=== PATIENT | female | born 1965 | race American Indian/Alaskan Native ===

== ENCOUNTER 2017-01-26 18:13 | Emergency (ER) | payer OTHER ==
[2017-01-26] MEDS ORDERED: cefTRIAXone 1 GM, Lidocaine 1% 2.1 ML IM ONE ×2 (19:11)
--- NOTE | 2017-01-26 19:14 | EDM.PDOC ---
ED HPI ENT - General Chief Complaint: ENT Problem Stated Complaint: ENT PROB Time Seen by Provider: 01/26/17 19:11 Source of Information: Reports: Patient History Limitations: Reports: No limitations - History of Present Illness INITIAL COMMENTS - FREE TEXT/NARRATIVE: 3 days h/o problem not better wants shot. - Related Data Allergies/ADRs: Allergies Allergy/AdvReac Type Severity Reaction Status Date / Time Sulfa (Sulfonamide Allergy Lightheaded Verified 01/26/17 18:43 Antibiotics) ness Home Meds: Home Meds Levothyroxine Sodium [Synthroid] 0.112 mcg PO DAILY 04/29/14 [History] Lisinopril [Prinivil] 10 mg PO DAILY 04/29/14 [History] Propranolol HCl [Propranolol HCl] 60 mg PO DAILY 04/29/14 [History] Cholecalciferol (Vitamin D3) [Cholecalciferol] 1 gm PO DAILY 11/28/16 [History] Ibuprofen [Motrin] 600 mg PO Q6H 11/28/16 [History] Montelukast [Singulair] 10 mg PO DAILY 11/28/16 [History] Ranitidine HCl [Ranitidine] 150 mg PO BID 11/28/16 [History] amLODIPine Besylate [Amlodipine Besylate] 5 mg PO DAILY 11/28/16 [History] atorvaSTATin [Lipitor] 5 mg PO BEDTIME 11/28/16 [History] Past Medical History HEENT History: Reports: Impaired vision Cardiovascular History: Reports: High cholesterol, Hypertension Respiratory History: Reports: Asthma Endocrine/Metabolic History: Reports: Hypothyroidism - Past Surgical History GI Surgical History: Reports: Appendectomy, Cholecystectomy Social & Family History - Tobacco Use Years of Tobacco use: 20 - Alcohol Use Days Per Week of Alcohol Use: 0 - Recreational Drug Use Recreational Drug Use: No ED ROS ENT - Review of Systems Review Of Systems: ROS reveals no pertinent complaints other than HPI. ED EXAM, ENT - Physical Exam Exam: See Below Exam Limited By: No limitations General Appearance: alert, WD/WN, mild distress, other (tearful) Ears: normal external exam, normal canal, hearing grossly normal, TM dullness Mouth/Throat: Pharyngeal erythema, Tonsillar erythema, Tonsillar swelling Head: atraumatic Neck: non-tender, full range of motion, lymphadenopathy (L), lymphadenopathy (R) Respiratory/Chest: no respiratory distress, no accessory muscle use Cardiovascular: regular rate, rhythm GI/Abdominal: soft, non tender Neurological: alert, oriented, normal cognition, normal gait, no motor/sensory deficits Psychiatric: flat affect Skin: Warm, Dry Lymphatic: other (cervical) Course - Vital Signs Last Recorded V/S: Last Vital Signs Temp 36.6 C 01/26/17 18:34 Pulse 72 01/26/17 18:34 Resp 16 01/26/17 18:34 BP 135/75 01/26/17 18:34 Pulse Ox 97 01/26/17 18:34 - Orders/Labs/Meds Orders: Active Orders 24 hr Category Date Time Status CULTURE STREP A CONFIRMATION [] Stat Lab 01/26/17 18:30 Results STREP SCRN A RAPID W CULT CONF [] Stat Lab 01/26/17 18:30 Results cefTRIAXone 1 GM,Lidocaine 1% 2.1 ML Med 01/26/17 19:11 Ordered cefTRIAXone [Rocephin] 1 gm Lidocaine 1% [Xylocaine-MPF 1%] 2.1 ml IM ONETIME - Re-Assessments/Exams Free Text/Narrative Re-Assessment/Exam: 01/26/17 19:13 results discussed with Pt. Departure - Departure Time of Disposition: 19:13 Disposition: Home, Self-Care 01 Condition: good Clinical Impression: Tonsillitis Instructions: Tonsillitis, [id number] Forms: ED Department Discharge Additional Instructions: 1) avoid solid foods and scratchy foods 2) have popsicle, jello, juice, soft foods 3) follow up at clinic or recheck as needed rx given: z-javier - My Orders Last 24 Hours: My Active Orders 01/26/17 19:11 cefTRIAXone 1 GM,Lidocaine 1% 2.1 ML cefTRIAXone [Rocephin] 1 gm Lidocaine 1% [ Xylocaine-MPF 1%] 2.1 ml IM ONETIME - Assessment/Plan Last 24 Hours: My Active Orders 01/26/17 19:11 cefTRIAXone 1 GM,Lidocaine 1% 2.1 ML cefTRIAXone [Rocephin] 1 gm Lidocaine 1% [ Xylocaine-MPF 1%] 2.1 ml IM ONETIME
[2017-01-26 19:19] VITALS: BP 119/89
== END 2017-01-26 19:40 | disposition home or self-care (01) ==
LOC: DL.ED 18:13
DX: J03.90 Acute tonsillitis, unspecified (principal); J45.909 Unspecified asthma, uncomplicated; I10 Essential (primary) hypertension; E78.00 Pure hypercholesterolemia, unspecified; E03.9 Hypothyroidism, unspecified; F17.200 Nicotine dependence, unspecified, uncomplicated; Z88.2 Allergy status to sulfonamides; Z79.899 Other long term (current) drug therapy
CPT/HCPCS: 87081; 87430; 87804; 96372; 99283; J0696

== ENCOUNTER 2018-11-19 17:03 | Emergency (ER) | payer BC, OTHER ==
--- NOTE | 2018-11-19 18:43 | EDM.PDOC ---
Scribed by Michaela Clancy 11/19/18 [id number] for Saniya Velásquez NP <Saniya Velásquez - Last Filed: 11/19/18 18:43> ED HPI GENERAL MEDICAL PROBLEM - General Chief Complaint: Respiratory Problem Stated Complaint: ? PNEUMONIA [id number] Time Seen by Provider: 11/19/18 18:08 Source of Information: Reports: Patient, RN, RN Notes Reviewed History Limitations: Reports: No Limitations - History of Present Illness INITIAL COMMENTS - FREE TEXT/NARRATIVE: Pt to Er with c/o chest heaviness, SOB, sinus congestion since Thursday. She admits to chills, cough, and nausea. She states she has been using several OTC meds such as decongestants, Mucinex, as well as nebulizers. Onset: Gradual Onset Date: 11/15/18 Treatments MOLDING ASSOCIATE: Reports: Breathing Treatments, Home Treatments, NSAIDS, Other Medication(s) Other Treatments MOLDING ASSOCIATE: OTC cold remedies Chest Pain Score (Numeric/FACES): 4 - Related Data Allergies Allergy/AdvReac Type Severity Reaction Status Date / Time Sulfa (Sulfonamide Allergy Lightheaded Verified 11/19/18 18:00 Antibiotics) ness Home Meds: Home Meds Levothyroxine Sodium [Synthroid] 125 mcg PO DAILY 04/29/14 [History] Lisinopril [Prinivil] 10 mg PO DAILY 04/29/14 [History] Cholecalciferol (Vitamin D3) [Cholecalciferol] 1 gm PO BEDTIME 11/28/16 [History ] Ibuprofen [Motrin] 600 mg PO Q6H PRN 11/28/16 [History] Montelukast [Singulair] 10 mg PO BEDTIME 11/28/16 [History] Ranitidine HCl [Ranitidine] 150 mg PO BID PRN 11/28/16 [History] Albuterol [Proventil Neb Soln] 2.5 mg INH QID 11/19/18 [History] Albuterol/Ipratropium [DuoNeb 3.0-0.5 MG/3 ML] 3 ml INH QID 11/19/18 [History] Cetirizine [ZyrTEC] 10 mg PO DAILY 11/19/18 [History] Past Medical History HEENT History: Reports: Impaired Vision Cardiovascular History: Reports: High Cholesterol, Hypertension Respiratory History: Reports: Asthma Endocrine/Metabolic History: Reports: Hypothyroidism - Past Surgical History GI Surgical History: Reports: Appendectomy, Cholecystectomy Social & Family History - Tobacco Use Smoking Status *Q: Current Every Day Smoker Years of Tobacco use: 37 Packs/Tins Daily: 1 Used Tobacco, but Quit: No Second Hand Smoke Exposure: No - Caffeine Use Caffeine Use: Reports: Coffee - Alcohol Use Days Per Week of Alcohol Use: 9 Number of Drinks Per Day: 2 Total Drinks Per Week: 18 - Recreational Drug Use Recreational Drug Use: No ED ROS GENERAL - Review of Systems Review Of Systems: ROS reveals no pertinent complaints other than HPI. ED EXAM, GENERAL - Physical Exam Exam: See Below Exam Limited By: No Limitations General Appearance: Alert, WD/WN, Mild Distress Eye Exam: Bilateral Eye: EOMI, Normal Inspection Ears: Normal External Exam, Hearing Grossly Normal Nose: Normal Inspection Throat/Mouth: Normal Inspection, Normal Voice, No Airway Compromise Head: Atraumatic, Normocephalic Neck: Normal Inspection, Full Range of Motion, Lymphadenopathy (L), Lymphadenopathy (R), Tender Lateral Respiratory/Chest: No Respiratory Distress, No Accessory Muscle Use, Crackles ( LLL), Wheezing (RUL) Cardiovascular: Normal Peripheral Pulses, Regular Rate, Rhythm, No Edema, No Gallop, No JVD, No Murmur, No Rub Peripheral Pulses: 2+: Radial (L), Radial (R) GI/Abdominal: Normal Bowel Sounds, Soft, Non-Tender (Female) Exam: Deferred Rectal (Female) Exam: Deferred Back Exam: Normal Inspection, Full Range of Motion Extremities: Normal Inspection, Normal Range of Motion, Non-Tender, No Pedal Edema, Normal Capillary Refill Neurological: Alert, Oriented, CN II-XII Intact, Normal Cognition, Normal Gait, Normal Reflexes, No Motor/Sensory Deficits Psychiatric: Normal Affect, Normal Mood Skin Exam: Warm, Dry, Intact, Normal Color, No Rash Lymphatic: Adenopathy (Bilateral submental/AC +2) Course - Vital Signs Last Recorded V/S: Last Vital Signs Temp 36.9 C 11/19/18 19:26 Pulse 65 11/19/18 19:26 Resp 18 11/19/18 19:26 BP 135/75 11/19/18 19:26 Pulse Ox 96 11/19/18 19:26 - Orders/Labs/Meds Orders: Active Orders 24 hr Category Date Time Status RT Aerosol Therapy [RC] ASDIRECTED Care 11/19/18 20:36 Active Benzonatate [Tessalon Perles] Med 11/19/18 21:33 Once 100 mg PO ONETIME ONE LORazepam [Ativan] Med 11/19/18 21:33 Once 1 mg PO ONETIME ONE Labs: Laboratory Tests 11/19/18 11/19/18 Range/Units 19:00 19:00 WBC 10.4 H (5.0-10.0) 10^3/uL RBC 4.40 (4.2-5.4) 10^6/uL Hgb 13.8 (12.0-16.0) g/dL Hct 40.9 (37.0-47.0) % MCV 93.0 D (80-100) fL MCH 31.4 (27.0-34.0) pg MCHC 33.7 (33.0-35.0) g/dL Plt Count 243 D (150-450) 10^3/uL Neut % (Auto) 67.3 (42.2-75.2) % Lymph % (Auto) 25.3 (20.5-50.1) % [place] % (Auto) 5.0 (2-8) % Eos % (Auto) 2.2 (1.0-3.0) % Baso % (Auto) 0.2 (0.0-1.0) % Sodium 134 L (135-145) mmol/L Potassium 3.8 (3.6-5.0) mmol/L Chloride 99 L (101-111) mmol/L Carbon Dioxide 24.0 (21.0-31.0) mmol/L Anion Gap 14.8 BUN 11 (7-18) mg/dL Creatinine 0.6 (0.6-1.3) mg/dL Est Cr Clr Drug Dosing 92.72 mL/min Estimated GFR (MDRD) > 60 BUN/Creatinine Ratio 18.33 Glucose 112 H (74-105) mg/dL Calcium 9.7 (8.4-10.2) mg/dl Total Bilirubin 0.7 (0.2-1.0) mg/dL AST 57 H (10-42) IU/L ALT 51 (10-60) IU/L Alkaline Phosphatase 86 (42-121) IU/L Total Protein 7.1 (6.7-8.2) g/dl Albumin 3.8 (3.2-5.5) g/dl Globulin 3.3 Albumin/Globulin Ratio 1.15 Meds: Medications Discontinued Medications Generic Name Dose Route Start Last Admin Trade Name Rogelioq PRN Reason Stop Dose Admin Albuterol/Ipratropium 3 ml 11/19/18 20:35 11/19/18 20:56 Duoneb 3.0-0.5 Mg/3 Ml NEB 11/19/18 20:36 3 ml ONETIME ONE Administration Ketorolac Tromethamine 30 mg 11/19/18 20:35 11/19/18 20:55 Toradol IM 11/19/18 20:36 30 mg ONETIME ONE Administration Methylprednisolone Sodium Succinate 125 mg 11/19/18 20:35 11/19/18 20:55 Solu-Medrol IM 11/19/18 20:36 125 mg ONETIME ONE Administration Departure - Departure Disposition: Home, Self-Care 01 Clinical Impression: Acute bronchitis with bronchospasm Sinusitis Qualifiers: Sinusitis location: frontal Chronicity: subacute Qualified Code(s): J01.10 - Acute frontal sinusitis, unspecified - Discharge Information Instructions: Acute Bronchitis, Adult Forms: ED Department Discharge Additional Instructions: 1) don't sleep flat at night 2) drink lots of liquids 3) continue with neb treatments and decongestants 4) recheck as needed rx given; medrol dospak tessalon pearles 100mg tid prn x 12 - My Orders Last 24 Hours: My Active Orders 11/19/18 20:36 RT Aerosol Therapy [RC] ASDIRECTED 11/19/18 21:33 Benzonatate [Tessalon Perles] 100 mg PO ONETIME ONE LORazepam [Ativan] 1 mg PO ONETIME ONE - Assessment/Plan Last 24 Hours: My Active Orders 11/19/18 20:36 RT Aerosol Therapy [RC] ASDIRECTED 11/19/18 21:33 Benzonatate [Tessalon Perles] 100 mg PO ONETIME ONE LORazepam [Ativan] 1 mg PO ONETIME ONE <Ken Briseno - Last Filed: 11/19/18 21:37> Course - Re-Assessments/Exams Free Text/Narrative Re-Assessment/Exam: 11/19/18 21:33 re-exam; s/p duoneb + solumed = much better Departure - Departure Time of Disposition: 21:34 Condition: Good I have read and agree with the documentation that has been completed regarding this visit. By signing this record, I attest that the documentation was completed in my physical presence and is an accurate record of the encounter.
[2018-11-19 19:26] VITALS: BP 135/75
[2018-11-19 19:26] LABS: ANION GAP 14.8; CHLORIDE,CL 99 mmol/L (101-111); SODIUM,NA 134 mmol/L (135-145)
[2018-11-19] MEDS ORDERED: methylPREDNISolone Sodium Succinate 125 MG/2 ML SDV IM ONE (20:35)
[2018-11-19] MEDS ORDERED: Ketorolac 30 MG/ML SDV IM ONE (20:35)
[2018-11-19] MEDS ORDERED: Albuterol/Ipratropium 3.0-0.5 MG/3 ML Neb Soln NEB ONE (20:35)
[2018-11-19] MEDS ORDERED: LORazepam 1 MG Tab PO ONE (21:33)
[2018-11-19] MEDS ORDERED: Benzonatate 100 MG Cap PO ONE (21:33)
== END 2018-11-19 21:45 | disposition home or self-care (01) ==
LOC: DL.ED 17:03
DX: J20.9 Acute bronchitis, unspecified (principal); J01.10 Acute frontal sinusitis, unspecified; E78.00 Pure hypercholesterolemia, unspecified; I10 Essential (primary) hypertension; F17.210 Nicotine dependence, cigarettes, uncomplicated; Z88.0 Allergy status to penicillin; Z79.899 Other long term (current) drug therapy
CPT/HCPCS: 36415; 71046; 80053; 85025; 87804; 96372; 99284; A9270; J1885; J2930; J7620-GY

== ENCOUNTER 2019-01-07 05:21 | Day surgery (SDC) | payer BC, OTHER ==
[2019-01-07] MEDS ORDERED: fentaNYL 100 MCG/2 ML SDV IV ONE ×4 (05:22→06:37)
[2019-01-07] MEDS ORDERED: Midazolam 1 MG/ML 2 ML SDV IV ONE ×7 (05:22→06:36)
[2019-01-07] MEDS ORDERED: Midazolam 1 MG/ML 2 ML SDV ONE (05:45)
[2019-01-07] MEDS ORDERED: fentaNYL 100 MCG/2 ML SDV ONE (05:45)
[2019-01-07] MEDS ORDERED: Dextrose 5%-0.45% NaCl 1,000 ML IV SCH (06:00)
--- NOTE | 2019-01-07 07:15 | OR ---
DATE: 01/07/2019 PROCEDURE: Total colonoscopy. INSTRUMENT USED: [id number]-[id number] Olympus video colonoscope. PREMEDICATIONS: Fentanyl 125 mcg intravenous, Versed 4 mg intravenous. Nasal O2 cannula. The procedure was done under pulse oximetry, BP recording, and trouble dispatcher. INDICATION: The patient with Hemoccult positive stools. Colonoscopic examination is done for detection of any polypoid lesions and removal, endoscopic hemostasis therapy if needed. DESCRIPTION OF PROCEDURE: Initial rectal exam was unremarkable. Rigid anoscopy showed small internal hemorrhoids without bleeding from them. The colonoscope was passed with ease to the ileocecal area. Photographs were taken of the normal cecum, identified by appendiceal orifice and double-bulged ileocecal folds. No bleeding was noted from any of the visualized areas at the commencement of the examination. The bowel preparation was the adequate, [place] scale 3. No stricture. No vascular ectasia. No large isolated ulcerations seen. No evidence of diffuse inflammatory bowel disease in the form of friability, contact bleeding, or ulcerations. No polyp or tumor mass identified. Probing the proximal sides of folds and flexures, using adequate distention and clearing up the stool material, withdrawal of the scope was made, cecum to rectum time over 6 minutes. No bleeding was noted from any of the visualized areas at the completion of examination. IMPRESSION: Internal hemorrhoids. The patient tolerated the procedure well. [facility] /[id number] MTDD
[2019-01-07 12:52] VITALS: BP 127/86
--- NOTE | 2019-01-07 12:55 | LETTER ---
01/07/2019 Mirella Wilkes MD [facility] [address] [place] [address] RE: CARIE PEDROZA : [address] Wilkes: Ms. Carie Pedroza had colonoscopic exam done this morning and she tolerated the procedure well. I herewith send a copy of the endoscopy note and photographs for your review. Thank you. Sincerely, [facility] /[id number]
== END 2019-01-07 08:51 | disposition home or self-care (01) ==
LOC: DL.ENDO 05:21
PROVIDERS: ATTEND Internal Medicine Gastroenterology
DX: R19.5 Other fecal abnormalities (principal); K64.8 Other hemorrhoids; E66.09 Other obesity due to excess calories; E78.00 Pure hypercholesterolemia, unspecified; I10 Essential (primary) hypertension; G56.21 Lesion of ulnar nerve, right upper limb; Z88.2 Allergy status to sulfonamides
CPT/HCPCS: 45378; J2250; J3010; J7042